=== PATIENT | female | born 1995 | race Caucasian/White ===

== ENCOUNTER 2017-04-22 10:11 | Emergency (ER) | payer OTHER ==
[2017-04-22 10:20] VITALS: BP 137/77; PULSE 77; RESP 16; TEMP 97.7; O2SAT 98
[2017-04-22] MEDS ORDERED: IBUPROFEN 600 MG TAB PO ONE (10:30)
--- NOTE | 2017-04-22 10:33 | EDPHY ---
General Narrative: CHIEF COMPLAINT: Skiing injury, left knee pain HISTORY OF PRESENT ILLNESS: Patient complains of pain in the left knee after falling while skiing yesterday. This was at [place]. She said she hit a patch of ice and fell to the ground. She says she twisted her knee and felt a popping sensation. She did not strike her head or lose consciousness. She was wearing a helmet. She has no injury anywhere other than her left knee. It is moderate to severe pain. She was able to [place] down the [place] with significant pain. Worse when she bends and straightens the knee. Worse when she walks on it. Does not radiate. No numbness or tingling. No other associated complaints or modifying factors. REVIEW OF SYSTEMS: Ten systems reviewed and are negative unless otherwise noted in the HPI PCP: Dr. Howard SPECIALISTS: None PAST MEDICAL HISTORY: Anxiety PAST SURGICAL HISTORY: None SOCIAL HISTORY: Nonsmoker. Occasional alcohol and marijuana use. FAMILY HISTORY: Noncontributory EXAMINATION General Appearance: Alert, no distress Head: normocephalic, atraumatic. No Steven sign or raccoon eyes. Eyes: Pupils equal and round, no conjunctival pallor or injection ENT, Mouth: Mucous membranes moist. Airway widely patent Neck: Normal inspection, supple, non-tender Respiratory: Lungs are clear to auscultation Cardiovascular: Regular rate and rhythm. No murmur. Symmetric DP and PT pulses 2+. Gastrointestinal: Abdomen is soft and nontender. No distention or tympany. Back: non-tender, no bony abnormalities Neurological: A&O, nonfocal, strength is symmetric in the arms and legs. Symmetric sensation to top of both feet. Skin: Warm and dry, no rash no petechiae or purpura. Extremities: Tenderness of the medial lateral aspect of the left knee. Difficulty straightening due to pain. Mild swelling about the knee. No instability. Unable to perform special test due to pain. Neurovascular intact distal to the area of pain Psychiatric: Mood and affect normal DIFFERENTIAL DIAGNOSES: Including but not limited to sprain, strain, fracture, contusion MDM: 10:30 a.m. Mechanical injury from skiing yesterday his left knee pain. No instability of the knee. She has pain more so with extension and flexion. She is neuro intact distally. I have ordered ibuprofen x-ray of the knee. No other areas of concern. She is well-appearing in no acute distress. 11:05 a.m. X-ray as read by me reveals no fracture or dislocation 11:15 a.m. Patient re-evaluated. I informed her of the radiologist's findings of effusion without fracture. Suspected this is a ligamentous sprain. We discussed knee immobilizer and crutches as needed. We discuss nonweightbearing range of motion. We discussed ibuprofen, ice and elevation. We also discussed follow up orthopedist as provided. She is comfortable this plan and discharged home stable condition. SUPERVISION: This patient was independently evaluated without direct involvement of or examination by the attending physician. - Diagnostics Imaging Results: Imaging Impressions Knee X-Ray 04/22/17 10:30 Impression: 1. There is no acute osseous abnormality identified. 2. Small suprapatellar joint effusion with slight lateral patellar tilting. If there is further clinical concern regarding the patient's knee pain, consider MR imaging. - History Smoking Status: Current every day smoker - Objective Vital Signs: Initial Vital Signs Temperature (C) 97.7 F 04/22/17 10:17 Heart Rate 77 04/22/17 10:17 Respiratory Rate 16 04/22/17 10:17 Blood Pressure 137/77 H 04/22/17 10:17 O2 Sat (%) 98 04/22/17 10:17 O2 Delivery Mode Room Air Allergies/Adverse Reactions: No Known Allergies Allergy (Verified 04/22/17 10:16) Home Medications: Medication Instructions Recorded Control Pills 04/22/17 Escitalopram Oxalate [Lexapro] 20 mg PO 04/22/17 Omeprazole [Prilosec 20 mg] 20 mg PO DAILY 04/22/17 Medications Given: Discontinued Medications Ibuprofen (Motrin) 600 mg PO EDNOW ONE Stop: 04/22/17 10:31 Last Admin: 04/22/17 10:35 Dose: 600 mg Departure - Departure Disposition: Home, Routine, Self-Care Clinical Impression: Left knee sprain Qualifiers: Encounter type: initial encounter Involved ligament of knee: lateral collateral ligament Qualified Code(s): S83.422A - Sprain of lateral collateral ligament of left knee, initial encounter Condition: Good Instructions: Knee Sprain (ED) Additional Instructions: 1. Ice and elevation as needed 2. Ibuprofen 600 mg every 8 hr as needed 3. Contact the on-call orthopedist as provided for outpatient follow-up 4. ED precautions as discussed Referrals: POLA HOWARD [Other] - As per Instructions Isai Kim MD [Medical Doctor] - As per Instructions
== END 2017-04-22 11:31 | disposition home or self-care (01) ==
DX: S83.422A Sprain of lateral collateral ligament of left knee, initial encounter (principal); F17.200 Nicotine dependence, unspecified, uncomplicated; W01.198A Fall on same level from slipping, tripping and stumbling with subsequent striking against other object, initial encounter; Y92.89 Other specified places as the place of occurrence of the external cause; Y93.23 Activity, snow (alpine) (downhill) skiing, snowboarding, sledding, tobogganing and snow tubing
CPT/HCPCS: L1830